=== PATIENT | female | born 1995 | race Caucasian/White ===

== ENCOUNTER 2020-04-13 19:49 | Emergency (ER) | payer BC ==
[~2020-04-13] VITALS: Ht 160 cm; Wt 56.8 kg
[2020-04-13 19:50] VITALS: BP 125/71
[2020-04-13] MEDS ORDERED: PENI500T2 PO (20:27)
[2020-04-13 20:29] LABS: MONOTEST NEGATIVE (Neg)
[2020-04-13] MEDS ORDERED: penicillin V potassium 500mg tablet PO ONE (20:35)
== END 2020-04-13 20:50 | disposition home or self-care (01) ==
LOC: ER 19:50 → EEVIPCON 19:50 → ER 20:50
DX: J02.9 Acute pharyngitis, unspecified (principal); R60.9 Edema, unspecified; R50.9 Fever, unspecified; J45.909 Unspecified asthma, uncomplicated; Z87.440 Personal history of urinary (tract) infections; Z79.2 Long term (current) use of antibiotics
CPT/HCPCS: 36415; 86308; 87081; 87880; 99283; U0003